=== PATIENT | male | born 1990 | race Caucasian/White ===

== ENCOUNTER 2021-03-20 01:06 | Emergency (ER) | payer OTHER ==
[2021-03-20] MEDS ORDERED: NORFLEX 100 MG100 MG PO (02:15)
[2021-03-20] MEDS ORDERED: LODINE CAP 300300 MG PO (02:15)
== END 2021-03-20 02:56 | disposition home or self-care (01) ==
LOC: ER1 01:06
DX: G89.29 Other chronic pain (principal); M54.50 Low back pain, unspecified; I10 Essential (primary) hypertension; F17.210 Nicotine dependence, cigarettes, uncomplicated
CPT/HCPCS: 96372; 99283; J1100; J1885